=== PATIENT | female | born 1960 | race Hispanic/Latino ===

== ENCOUNTER 2018-12-16 08:13 | Outpatient (CLI) | payer MEDICARE | END 2018-12-16 08:14 | disposition home or self-care (01) | LOC: LAB 08:13 ==

== ENCOUNTER 2018-12-23 05:33 | Outpatient (CLI) | payer MEDICARE | END 2018-12-23 05:34 | disposition home or self-care (01) | LOC: PET-BROA 05:33 | DX: R91.1 Solitary pulmonary nodule (principal); R91.8 Other nonspecific abnormal finding of lung field ==